=== PATIENT | female | born 1980 | race Caucasian/White ===

== ENCOUNTER 2016-12-29 09:47 | Emergency (ER) | payer OTHER ==
[2016-12-29 11:03] VITALS: BP 138/79
[2016-12-29] MEDS ORDERED: Acetaminophen 500 MG Tab PO ONE (12:08)
--- NOTE | 2016-12-29 12:12 | EDM.PDOC ---
ED HPI GENERAL MEDICAL PROBLEM - General Chief Complaint: Gastrointestinal Problem Stated Complaint: BLOODY STOOLS Time Seen by Provider: 12/29/16 11:05 Source of Information: Reports: Patient History Limitations: Reports: No Limitations - History of Present Illness INITIAL COMMENTS - FREE TEXT/NARRATIVE: 36 yo female presents to ER with 3 days of diarrhea and last evening has small amount of bright red blood in diarrhea. children had been sick last week with diarrhea. Pt has been having three episodes light colored mucous stools. mild crapping prior to bowel movements but generally feeling good. Denies antibiotic use in the last 6 months. Also c/o vaginal itching. Has been self treating with OTC for yeast infection with moderate results. Denies fever, chills, CP, SOB, N/V. She is vacationing in the area and will be returning to [facility] in 2 days - Related Data Allergies Allergy/AdvReac Type Severity Reaction Status Date / Time No Known Allergies Allergy Verified 12/29/16 11:26 Home Meds: Home Meds NK [No Known Home Meds] 12/29/16 [History] Past Medical History [employer] History: Reports: Social & Family History - Family History Family Medical History: Noncontributory - Tobacco Use Smoking Status *Q: Never Smoker - Caffeine Use Caffeine Use: Reports: Coffee - Recreational Drug Use Recreational Drug Use: No ED ROS GENERAL - Review of Systems Review Of Systems: See Below Constitutional: Denies: Fever, Chills, Fatigue Respiratory: Denies: Shortness of Breath, Wheezing Cardiovascular: Denies: Chest Pain Skin: Denies: Rash ED EXAM, GI/ABD - Physical Exam Exam: See Below Exam Limited By: No Limitations General Appearance: Alert, WD/WN, No Apparent Distress Head: Atraumatic, Normocephalic Neck: Supple, Non-Tender Respiratory/Chest: No Respiratory Distress, Lungs Clear, Normal Breath Sounds. No: Crackles, Rhonchi, Wheezing Cardiovascular: Normal Peripheral Pulses, Regular Rate, Rhythm, No Edema, No Murmur GI/Abdominal: Normal Bowel Sounds, Soft, Non-Tender (Female) Exam: Other (external genital inflammation, clear vaginal discharge) Rectal (Female) Exam: Normal Exam, Normal Rectal Tone, Heme + Stool. No: Hemorrhoids, Mass, Perirectal Abscess, Rectal Fissure, Tenderness Neurological: Alert, Oriented Psychiatric: Normal Affect, Normal Mood Skin Exam: Warm, Dry, Intact Lymphatic: No Adenopathy Course - Vital Signs Last Recorded V/S: Last Vital Signs Temp 36.9 C 12/29/16 11:01 Pulse 70 12/29/16 11:01 Resp 14 12/29/16 11:01 BP 138/79 12/29/16 11:01 Pulse Ox 100 12/29/16 11:01 - Orders/Labs/Meds Labs: Laboratory Tests 12/29/16 Range/Units 11:49 Hgb 13.4 (12.0-15.0) g/dL Meds: Medications Discontinued Medications Generic Name Dose Route Start Last Admin Trade Name Soha PRN Reason Stop Dose Admin Acetaminophen 1,000 mg 12/29/16 12:08 12/29/16 12:22 Tylenol Extra Strength PO 12/29/16 12:09 1,000 mg ONETIME ONE Administration Acetaminophen Confirm 12/29/16 12:21 12/29/16 12:24 Tylenol Extra Strength Administered 12/29/16 12:22 Not Given Dose 1,000 mg .ROUTE .STK-MED ONE - Re-Assessments/Exams Free Text/Narrative Re-Assessment/Exam: 12/29/16 18:55 pt denies light headedness. Only small amount of stool sample collected. This was positive occult. Denies ABD pain. Hgb normal BP normal not tachycardic. will treat travelers diarrhea and yeast infection. Departure - Departure Time of Disposition: 12:09 Disposition: Home, Self-Care 01 Condition: good Clinical Impression: Sandra infection Diarrhea Qualifiers: Diarrhea type: infectious Qualified Code(s): A09 - Infectious gastroenteritis and colitis, unspecified Vaginitis Qualifiers: Chronicity: acute Qualified Code(s): N76.0 - Acute vaginitis - Discharge Information Instructions: Vaginal Yeast Infection, Adult Referrals: PCP,None [Primary Care Provider] - Forms: ED Department Discharge Additional Instructions: Cipro 500 mg twice daily for 3 days to treat diarrhea increase fluid intake with goal of 1.5-2 liters per day Diflucan 150 mg one time dose for vaginal yeast If diarrhea has not resolved on return home iplease follow-up with primary care provider If diarrhea increases, you feel light headed or you develop a fever please return
[2016-12-29] MEDS ORDERED: Acetaminophen 500 MG Tab ONE (12:21)
== END 2016-12-29 12:25 | disposition home or self-care (01) ==
LOC: JP.ED 09:47
DX: B37.9 Candidiasis, unspecified (principal); A09 Infectious gastroenteritis and colitis, unspecified; N76.0 Acute vaginitis
CPT/HCPCS: 36415; 82272; 85018; 99284; A9270